=== PATIENT | female | born 1970 | race Caucasian/White ===

== ENCOUNTER 2018-06-10 06:40 | Inpatient (IN) ==
[2018-06-10] MEDS ORDERED: CeFAZolin Syr 2,000MG/20 ML 2,000 MG/20 ML SYRINGE IVPB ONE (07:02)
[2018-06-10] MEDS ORDERED: Ketorolac 15 MG/ML VIAL IVP ONE (07:03)
[2018-06-10] MEDS ORDERED: *HR* Midazolam HCl 2 MG/2 ML VIAL ONE (07:06)
[2018-06-10] MEDS ORDERED: *HR* Propofol 200 MG/20 ML VIAL IVP ONE (07:06)
[2018-06-10] MEDS ORDERED: *HR* FentaNYL (PF) 100 MCG/2 ML VIAL ONE (07:06)
[2018-06-10] MEDS ORDERED: Ondansetron 4 MG/2 ML VIAL ONE (07:12)
[2018-06-10] MEDS ORDERED: Neostigmine Methylsulfate 3 MG/3 ML SYRINGE ONE (07:12)
[2018-06-10] MEDS ORDERED: Dexamethasone 4 MG/ML VIAL ONE (07:12)
[2018-06-10] MEDS ORDERED: Lidocaine -MPF 2% 2 ML VIAL ONE (07:12)
[2018-06-10] MEDS ORDERED: *HR* Succinylcholine 200 MG/10 ML VIAL IVP ONE (07:13)
[2018-06-10] MEDS ORDERED: Ringers Solution, Lactated 1,000 ML IVC SCH ×2 (07:15→09:29)
[2018-06-10] MEDS ORDERED: *HR* Rocuronium Bromide 50 MG/5 ML VIAL ONE (07:15)
[2018-06-10] MEDS ORDERED: Lidocaine -MPF 4% 5 ML AMPUL ONE (07:19)
--- NOTE | 2018-06-10 07:23 | Anesthesia Evaluation PreOp ---
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 History: Seizures (last one a few days ago), Other (anxiety, back pain, fibromyalgia) Other Medical History: Denies Any Significant HX Anesthesia History: No Prior Anesthetic Complications Alcohol Use: none Drug use: none Medications and Allergies Naproxen [Naprosyn] 500 mg PO BID PRN #20 tablet 04/17/18 [Rx] Allergy/AdvReac Type Severity Reaction Status Date / Time levofloxacin [From Levaquin] Allergy Hives Verified 04/30/16 08:57 Amoxicillin AdvReac See Verified 04/30/16 08:57 Comments phenytoin [From Dilantin] AdvReac See Verified 04/30/16 08:57 Comments Sulfa (Sulfonamide AdvReac Dizziness Verified 04/30/16 08:57 Antibiotics) sulfamethoxazole AdvReac Swelling Verified 04/30/16 08:57 [From Bactrim] of Lip/Tongue/Throat tramadol [From Ultram] AdvReac Palpitation Verified 04/30/16 08:57 s trimethoprim [From Bactrim] AdvReac Swelling Verified 04/30/16 08:57 of Lip/Tongue/Throat - Meds/Allergy Pre-op Review Medications Reviewed: Yes Allergies Reviewed: Yes Beta Blockers on Current Med List: No Anesthesia Results - Labs Laboratory Tests 09/11/17 09/11/17 06/06/18 10:53 10:53 13:08 WBC 6.4 Hgb 12.8 Hct 40.9 Plt Count 283 Sodium 136 Potassium 4.1 Chloride 104 Carbon Dioxide 25 BUN 20 Creatinine 0.73 Est GFR ( Amer) > 60 Est GFR (Non-Af Amer) > 60 BUN/Creatinine Ratio 27 H Glucose 109 H Calculated Osmolality 285 Calcium 9.2 Serum , Qual 06/06/18 13:08 WBC Hgb Hct Plt Count Sodium Potassium Chloride Carbon Dioxide BUN Creatinine Est GFR ( Amer) Est GFR (Non-Af Amer) BUN/Creatinine Ratio Glucose Calculated Osmolality Calcium Serum , Qual Negative Anesthesia Exam Last Vital Signs Temp 98.4 F 06/10/18 06:54 Pulse 106 06/10/18 06:54 Resp 18 06/10/18 06:54 BP 145/96 06/10/18 06:54 Pulse Ox 97 06/10/18 06:54 Weight: 63 kg NPO (# of Hours): > 8 hrs - HEENT Pupil (Motor): Pupils equal, EOMI Mallampati: II Teeth: Normal Oral Opening: Greater than 3 - 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
[2018-06-10] MEDS ORDERED: Acetaminophen IV 1,000 MG/100 ML INFUS..BTL IVPB ONE (07:24)
[2018-06-10] MEDS ORDERED: *HR* OxyCODONE Immed Rel 5 MG TABLET PO ONE (07:24)
--- NOTE | 2018-06-10 07:34 | History & Physical Report ---
Date of Encounter: 06/10/18 Time of Encounter: 07:32 24 Hour HP Update - Instructions Instructions: If the History and Physical is less than 30 days old and was completed prior to A.M. admission and or procedure and has NOT been updated on calendar day of procedure please complete this update prior to performing procedure. - Update Patient reports changes in Medical Condition: No Changes in examination, assessment, or condition: No Changes in Medication: No Preop tests/diagnostics Reviewed: Yes Pre-Op MRSA Screen: Negative Surgery Remains Indicated: Yes Consent for Planned Operative Procedure(s) Verified: Yes - Pre-Operative Checklist Preoperative Checklist Indicated: Yes Prophylactic Antibiotic Ordered: Yes Home Medications Include Beta Farrah: No Beta Farrah Taken Today (Day of Surgery): No Beta Farrah Taken Yesterday (Day Prior to Surgery): No Is VTE Prophylaxis Indicated?: Yes
[2018-06-10] MEDS ORDERED: EPHEDrine 50 MG/ML VIAL ONE (08:01)
[2018-06-10] MEDS ORDERED: *HR* HYDROMORPHONE 2 MG/ML VIAL ONE (08:24)
[2018-06-10] MEDS ORDERED: *HR* Promethazine 25 MG/ML VIAL IVP PRN (08:30)
[2018-06-10] MEDS ORDERED: *HR* OxyCODONE Immed Rel 5 MG TABLET PO PRN (08:30)
--- NOTE | 2018-06-10 09:06 | OB/GYN Procedure Note ---
Hysterectomy - Diagnosis Date of procedure: 06/10/18 Hysterectomy pre-op: symptomatic leiomyomata Post-op diagnosis: same - Procedure Hysterectomy procedure: total abdominal hysterectomy Surgeon: Myriam Perez Was there an senior assistant manager present: Yes Landscape Technician: Jamarcus Martin Anesthesia Type: General Estimated blood loss (cc): 50 Complications: none Fluids: crystalloid Specimens: uterus Findings: normal uterus, 6 cm pedunculated fibroid, normal adnexa Disposition: PACU Narrative: Patient was taken to the operating suite and under general anesthesia a total abdominal hysterectomy was performed. Pfannenstiel incision was created. Subcutaneous fat and fascia were excised and taken down to the peritoneal cavity. Peritoneum was entered superiorly without consequence to bowel or bladder. Retractor was placed within the abdominal incision and the bowel and bladder were packed away without any difficulty. Pelvis was systematically inspected. Findings were as noted above. The uterus was grasped with Renee clamps. Bilateral round ligaments were identified. Bilateral round ligaments car clamped transected and suture ligated. The uterine ovarian pedicles were isolated they were clamped transected and suture ligated. Ovaries were noted to be within normal limits. The bladder flap was released off the lower uterine segment. The uterine arteries were skeletonized. The uterine arteries were bilaterally clamped transected and suture ligated. The bladder again was released off the cervix without difficulty. In a series of step the broad cardinal and uterosacral ligaments were clamped transected and suture ligated. Curved clamps were placed beneath the uterine cervix. The uterus was amputated without difficulty. The vaginal cuff was closed in an interrupted fashion. The uterine vessels and uterosacral arteries were secured to the ipsilateral vaginal cuff for vaginal vault support. Copious irrigation was then performed. Surgical sites were inspected. Hemostasis was assured. All instruments were removed from the abdominal cavity. Sponge lap needle and instrument counts were assured to be correct 2. The fascia was closed with one right one length of Vicryl in a running fashion. The skin was closed with corona. We had no intraoperative complications. Patient was taken to the postanesthesia care unit in stable condition.
[2018-06-10] MEDS ORDERED: Naloxone 0.4 MG/ML INJ IVP PRN (09:10)
[2018-06-10] MEDS ORDERED: Ondansetron 4 MG/2 ML VIAL IVP PRN (09:10)
[2018-06-10] MEDS ORDERED: *HR* OxyCODONE/APAP 5/325 TABLET PO PRN (09:10)
[2018-06-10] MEDS ORDERED: *HR* HYDROmorphone (PF) 1 MG/ML SYRINGE IVP PRN (09:29)
[2018-06-10] MEDS ORDERED: *HR* FentaNYL (PF) 100 MCG/2 ML VIAL IVP PRN (09:38)
--- NOTE | 2018-06-10 11:28 | Anesthesia Evaluation Post Op ---
Date of Encounter: 06/10/18 Time of Encounter: 09:52 - Discharge PostOp Status: Transfer Patient to floor (Patient's vital signs have been reviewed. Patient is stable postoperatively and has adequately recovered from anesthesia. Patient is determined to have stable airway patency and respiratory function including respiratory rate and oxygen saturation. Patient has a stable heart rate, blood pressure and adequate hydration. Patients mental status is acceptable. Patients temperature is appropriate. Pain and nausea are adequately controlled.?)
[2018-06-10] MEDS: *HR* OxyCODONE/APAP 10/325 TABLET PO PRN ×2 (17:17→21:17)
[2018-06-10] MEDS: Pregabalin 75 MG CAPSULE PO SCH (21:15)
[2018-06-11] MEDS: *HR* OxyCODONE/APAP 10/325 TABLET PO PRN ×6 (01:22→21:26)
[2018-06-11 06:46] LABS: Basophils % 0.1 %; Eosinophils % 0.4 %; Hematocrit 29.4 % (35.3-44.9); Immature Granulocytes % 0.3 % (0-4); Lymphocytes # 2.7 K/mcL (0.6-4.6); Lymphocytes % 37.4 %; Mean Corpuscular HGB Conc 32.7 g/dL (31.6-35.5); Mean Corpuscular Hemoglobin 29.7 pg (28.0-33.3); Mean Platelet Volume 9.6 fL (9.4-12.4); Monocytes # 0.7 K/mcL (0.0-1.3); Monocytes % 9.6 %; Neutrophils # 3.7 K/mcL (1.6-8.9); Platelet Count 208 K/mcL (140-400); Red Blood Count 3.23 M/mcL (3.82-4.97); Red Cell Distribution Width 12.8 % (11.5-14.5); Segmented Neutrophils % 52.2 %
[2018-06-11 06:47] LABS: Hemoglobin 9.6 g/dL (11.5-15.4)
[2018-06-11 07:03] LABS: eGFR For Non-African Americans > 60 (> 60)
--- NOTE | 2018-06-11 08:40 | OB/GYN Progress Note ---
Date of Encounter: 06/11/18 Time of Encounter: 08:38 - Assessment and Plan (1) Post-op pain Current Visit: Yes Status: Acute POD#1 from MARRY/BS for AUB Postoperative management - pain to be controlled with PO only - ambulation recommended today - attempt to tolerate regular diet - voiding independently, passing flatus - rx signed to pharmacy for oxycodone should patient desires DC Dispo: Pending patinet status, DC to home today or tomorrow (likely) on POD#2. MD JEANNIE (2) History of hysterectomy Current Visit: Yes Status: Acute Subjective - Subjective Principal diagnosis: POD#1 MARRY/BS Patient reports: appetite normal, voiding normally, pain well controlled Objective - Vital Signs Latest vital signs: Vital Signs Temp Pulse Resp BP Pulse Ox 06/11/18 05:20 98.4 F 102 14 127/81 100 06/11/18 01:17 98.6 F 87 14 115/70 98 06/10/18 21:12 98.6 F 91 16 147/87 98 06/10/18 13:18 97.9 F 94 16 151/91 95 06/10/18 12:19 97.7 F 90 16 143/86 96 06/10/18 11:20 97.6 F 93 16 146/66 98 06/10/18 10:47 88 14 136/83 97 06/10/18 10:15 97.4 F L 74 16 137/62 100 06/10/18 09:49 98.7 F 72 16 125/76 97 06/10/18 09:39 98.7 F 78 16 124/74 100 06/10/18 09:29 98.4 F 80 16 113/71 97 06/10/18 09:19 98.4 F 73 16 126/70 97 06/10/18 09:09 98.3 F 71 16 119/70 100 Intake and Output 06/10/18 06/11/18 06/11/18 23:59 07:59 15:59 Intake Total 0 / 0 100 / 100 Output Total 1400 / 1400 500 / 500 350 / 350 Balance -1400 / -1400 -400 / -400 -350 / -350 Intake: Oral 0 / 0 100 / 100 Output: Urine 350 / 350 Catheter 1400 / 1400 500 / 500 Other: Meal Dinner Percent of Meal Consumed 0% Weight 63.594 kg Patient Weight 06/11/18 23:59 Weight 63.594 kg - I&O's I&O's: Intake & Output 06/08/18 06/09/18 06/10/18 06/11/18 23:59 23:59 23:59 23:59 Intake Total 100 / 100 Output Total 1415 / 1415 850 / 850 Balance -1395 / -1395 -750 / -750 Weight 62.596 kg 63.594 kg - Exam Extremities: Present: normal Abdomen: Present: normal appearance, gravid Incision OB: Present: normal, dry, intact Comments: closed by staple - Labs Labs: Abnormal lab results RBC 3.23 M/mcL (3.82-4.97) L 06/11/18 06:32 Hgb 9.6 g/dL (11.5-15.4) L D 06/11/18 06:32 Hct 29.4 % (35.3-44.9) L 06/11/18 06:32 Consult Discharge Plan - Plan Referrals: Sánchez Dozier DO [Primary Care Provider] - Prescriptions: Oxycodone HCl 5 mg PO Q4H 7 Days #20 tablet
[2018-06-11] MEDS: Pregabalin 75 MG CAPSULE PO SCH ×2 (09:34→21:19)
[2018-06-12] MEDS: *HR* OxyCODONE/APAP 10/325 TABLET PO PRN ×4 (03:55→15:52)
[2018-06-12 05:23] VITALS: BP 132/79
--- NOTE | 2018-06-12 07:39 | Discharge Summary ---
Date of Encounter: 06/12/18 Time of Encounter: 07:00 - Discharge Diagnosis (1) Post-op pain Priority: Secondary Status: Acute (2) History of hysterectomy Priority: Primary Status: Acute - Discharge Medications Prescriptions: Oxycodone HCl 5 mg PO Q4H 7 Days #20 tablet Home Medications: Citalopram Hydrobromide [Citalopram HBr] 60 mg PO DAILY 06/10/18 [History] DiphenhydraMINE [Benadryl] 50 mg PO HS 06/10/18 [History] OxyCODONE/APAP 10/325 [Percocet 10/325 MG] 1 tab PO Q6HR PRN 06/10/18 [History] Pregabalin [Lyrica] 225 mg PO DAILY 06/10/18 [History] Oxycodone HCl 5 mg PO Q4H 7 Days #20 tablet 06/11/18 [Rx] Allergies/Adverse Reactions: Allergy/AdvReac Type Severity Reaction Status Date / Time levofloxacin [From Levaquin] Allergy Hives Verified 04/30/16 08:57 Amoxicillin AdvReac See Verified 04/30/16 08:57 Comments ketorolac [From Toradol] AdvReac Palpitation Verified 06/10/18 07:52 s phenytoin [From Dilantin] AdvReac See Verified 04/30/16 08:57 Comments Sulfa (Sulfonamide AdvReac Swelling Verified 06/10/18 07:52 Antibiotics) of Lip/Tongue/Throat sulfamethoxazole AdvReac Swelling Verified 04/30/16 08:57 [From Bactrim] of Lip/Tongue/Throat trimethoprim [From Bactrim] AdvReac Swelling Verified 04/30/16 08:57 of Lip/Tongue/Throat Data Procedures and tests throughout hospitalization: Laboratory Tests 06/11/18 06/11/18 06:32 06:32 WBC 7.1 RBC 3.23 L Hgb 9.6 L D Hct 29.4 L MCV 91.0 MCH 29.7 MCHC 32.7 RDW 12.8 Plt Count 208 MPV 9.6 Immature Gran % 0.3 Seg Neutrophils % 52.2 Lymphocytes % 37.4 Monocytes % 9.6 Eosinophils % 0.4 Basophils % 0.1 Neutrophils # 3.7 Lymphocytes # 2.7 Monocytes # 0.7 Eosinophils # 0.0 Basophils # 0.0 Creatinine 0.80 Est GFR ( Amer) > 60 Est GFR (Non-Af Amer) > 60 Date of admission: 06/10/18 10:05 Primary care physician: Sánchez Dozier DO Discharging clinician: Yumiko Singer Anticipated date of discharge: 06/12/18 - Patient Status Disposition: Home, Self-Care Condition: Good Functional capacity at discharge: independent ambulation Overall status at discharge: patient is progressing back to baseline - Discharge Instructions Follow Up With: Sánchez Dozier DO [Primary Care Provider] - 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 Patient was slow to meet milestones and therefore stayed overnight. Dressing was removed, incision closed by corona. CDI, OK for patient to shower and cleanse with soapy suds. Patient was passing flatus, ambulating independently, voiding independently, and her pain was better controlled. She was meeting her postoperative milestones on the day she was discharged with scheduled follow up with Dr. Perez to have corona removed from incision in 7 days and another postoperative appointment in 4 weeks. Patient was discharged to home with rx for pain along with OTC recommendation(s) for IBUprofen. MD JEANNIE Time Attestation: Total time spent providing and/or coordinating discharge services: Exam - Constitutional Vitals: Temp Pulse Resp BP Pulse Ox 98.0 F 85 18 132/79 100 06/12/18 03:35 06/12/18 05:05 06/12/18 03:35 06/12/18 05:05 06/12/18 03:35 General appearance IM: A&O X 0 - Respiratory Respiratory exam: Present: CTAB - GI/Abdominal GI/Abdominal exam IM: normal bowel sounds Incision: normal, dry, intact Additional comments: Incision closed by corona (pfannenstiel incision) - External exam: ecchymosis - Neurological Exam Neurological exam: normal gait, oriented X3 - VTE Reasons for not Prescribing Prophylaxis: Treatment not Indicated - Low risk for VTE Documentation of Mechanical Device: Intermittent pneumatic compression device
[2018-06-12] MEDS: Pregabalin 75 MG CAPSULE PO SCH (08:08)
== END 2018-06-12 16:19 | disposition home or self-care (01) | DRG 743 ==
LOC: SAMDAY 06:40 → 1NENUOBS 10:05
PROVIDERS: ADMIT Obstetrics & Gynecology; ATTEND Obstetrics & Gynecology